=== PATIENT | male | born 1960 | race Caucasian/White ===

== ENCOUNTER 2016-11-09 20:47 | Inpatient (IN) | payer OTHER ==
[2016-11-09 20:54] VITALS: BMI 27.6
[2016-11-09] MEDS ORDERED: ENALAPRIL MALEATE 10 MG TABLET (FP) PO ONE (21:50)
[2016-11-09] MEDS ORDERED: NITROGLYCERIN SUBLINGUAL 1/150 0.4 MG TAB SL ONE (21:51)
[2016-11-09] MEDS ORDERED: NITROGLYCERIN 2% OINTMENT - 1GM PACKET TD ONE (21:51)
[2016-11-09] MEDS ORDERED: ENALAPRIL MALEATE 5 MG TABLET (FP) ONE (21:54)
--- NOTE | 2016-11-09 22:33 | PDOC ---
History of Present Illness - General History Source: Patient - History of Present Illness Initial Comments: 11/09/16 22:42 The patient is a 56-year-old male accompanied by friend with a significant past medical history of hypertension (7 years), [place] (2009), and presents to the emergency department with high blood pressure, lightheadedness, dizziness, and weakness for 5 days. He reports he measured his blood pressure at home and it has been approximately 220/120 for the last few days. He started taking his s metoprolol (from [facility]), 50 mg, intermittently twice a day for 3 days when his high blood pressure exacerbation started. He states that he also had an unwitnessed fall at home 4 days ago due to his dizziness. He reports swelling in his left elbow. He reports experiencing numbness in his left shoulder 2 days ago, and he reports more weakness in the left side of his body. He reports difficulty walking and feels a heaviness in his legs. He denies head trauma, loss of consciousness, or syncope. His doctor is in [facility] and his last doctor s visit was 3 years ago. He is non-compliant with his medications. The patient speaks Faroese-Persian. The patient denies chest pain, shortness of breath, blurry vision, and headache. The patient denies fever, chills, nausea, vomit, diarrhea and constipation. The patient denies dysuria, frequency, urgency and hematuria. Allergies: NKDA Social History: No toxic habits reported PCP: in [facility] <Jana Hurtado - Last Filed: 11/09/16 22:41> <Steffany Duenas - Last Filed: 11/11/16 06:32> - General Chief Complaint: Blood Pressure Problem Stated Complaint: HIGH BP/LIGHTHEADED Time Seen by Provider: 11/09/16 21:18 Past History <Jana Hurtado - Last Filed: 11/09/16 22:41> - Past Medical History Cardiac Disorders: Yes (AL 1995, 2009) HTN: Yes - Psycho/Social/Smoking Cessation Hx Suicidal Ideation: No Smoking History: Never smoked <Steffany Duenas - Last Filed: 11/11/16 06:32> - Past Medical History Allergies/Adverse Reactions: Allergies Allergy/AdvReac Type Severity Reaction Status Date / Time No Known Allergies Allergy Verified 11/09/16 20:52 Home Medications: Ambulatory Orders Metoprolol Succinate [Toprol Xl] 50 mg PO DAILY 11/09/16 Review of Systems - Review of Systems Able to Perform ROS?: Yes Comments:: 11/09/16 22:42 CONSTITUTIONAL: Present: (+) generalized weakness Absent: fever, chills, diaphoresis, malaise, loss of appetite HEENT: Absent: rhinorrhea, nasal congestion, throat pain, throat swelling, difficulty swallowing, mouth swelling, ear pain, eye pain, visual changes CARDIOVASCULAR: Present: (+) lightheadedness, (+) high blood pressure Absent: chest pain, syncope, palpitations, irregular heart rate, peripheral edema RESPIRATORY: Absent: cough, shortness of breath, dyspnea with exertion, orthopnea, wheezing, stridor, hemoptysis GASTROINTESTINAL: Absent: abdominal pain, abdominal distension, nausea, vomiting, diarrhea, constipation, melena, hematochezia GENITOURINARY: Absent: dysuria, frequency, urgency, hesitancy, hematuria, flank pain, genital pain MUSCULOSKELETAL: Present: (+) left elbow swelling Absent: myalgia, arthralgia SKIN: Absent: rash, itching, pallor HEMATOLOGIC/IMMUNOLOGIC: Absent: easy bleeding, easy bruising, lymphadenopathy, frequent infections ENDOCRINE: Absent: unexplained weight gain, unexplained weight loss, heat intolerance, cold intolerance NEUROLOGIC: Present: (+) dizziness Absent: headache, focal weakness or paresthesias, unsteady gait, seizure, mental status changes, bladder or bowel incontinence PSYCHIATRIC: Absent: anxiety, depression, suicidal or homicidal ideation, hallucinations. <Jana Hurtado - Last Filed: 11/09/16 22:41> *Physical Exam - Vital Signs Last Vital Signs Temp Pulse Resp BP Pulse Ox 98 F 55 L 18 200/110 97 11/09/16 20:52 11/09/16 20:52 11/09/16 20:52 11/09/16 20:52 11/09/16 20:52 - Physical Exam Comments: 11/09/16 22:43 GENERAL: Well developed, well nourished. Awake and alert. No acute distress. HEENT: Normocephalic, atraumatic. PERRLA, EOMI. No conjunctival pallor. Sclera are non- icteric. Moist mucous membranes. Oropharynx is clear. NECK: Supple. Full ROM. No JVD. Carotid pulses 2+ and symmetric, without bruits. No thyromegaly. No lymphadenopathy. CARDIOVASCULAR: Regular rate and rhythm. No murmurs, rubs, or gallops. Distal pulses are 2+ and symmetric. PULMONARY: No evidence of respiratory distress. Lungs clear to auscultation bilaterally. No wheezing, rales or rhonchi. ABDOMINAL: Soft. Non-tender. Non-distended. No rebound or guarding. No organomegaly. Normoactive bowel sounds. MUSCULOSKELETAL (+) Bursitis of the left elbow. Normal range of motion at all joints. No CVA tenderness. EXTREMITIES: No cyanosis. No clubbing. No edema. No calf tenderness. SKIN: Warm and dry. Normal capillary refill. No rashes. No jaundice. NEUROLOGICAL: (+) Neurologically intact, finger to nose normal, Romberg sign normal. Alert, awake, appropriate. Cranial nerves 2-12 intact. No deficits to light touch and temperature in face, upper extremities and lower extremities. No motor deficits in the in face, upper extremities and lower extremities. Normoreflexic in the upper and lower extremities. Normal speech. Toes are down-going bilaterally. PSYCHIATRIC: Cooperative. Good eye contact. Appropriate mood and affect. <Jana uHrtado - Last Filed: 11/09/16 22:41> - Vital Signs Last Vital Signs Temp Pulse Resp BP Pulse Ox 98 F 55 L 18 200/110 97 11/09/16 20:52 11/09/16 20:52 11/09/16 20:52 11/09/16 20:52 11/09/16 20:52 <Steffany Duenas - Last Filed: 11/11/16 06:32> ED Treatment Course - Medications Given in the ED: ED Medications Discontinued Medications Generic Name Dose Route Start Last Admin Trade Name Freq PRN Reason Stop Dose Admin Enalapril Maleate 20 mg 11/09/16 21:50 11/09/16 21:54 Vasotec - PO 11/09/16 21:51 20 mg ONCE ONE Administration Nitroglycerin 0.8 mg 11/09/16 21:51 11/09/16 21:53 Nitrostat - SL 11/09/16 21:52 0.8 mg ONCE ONE Administration Nitroglycerin 1 inch 11/09/16 21:51 11/09/16 21:53 Nitro-Bid 2% Paste - TD 11/09/16 21:52 1 inch ONCE ONE Administration <BryantJana - Last Filed: 11/09/16 22:41> - LABORATORY CBC & Chemistry Diagram: 11/10/16 06:00 11/10/16 06:00 - RADIOLOGY Radiology Studies Ordered: Category Date Time Status HEAD CT WITHOUT CONTRAST [CT] Stat CT Scan 11/09/16 21:50 Ordered CHEST PA & LAT [RAD] Stat Radiology 11/09/16 21:49 Ordered - Medications Given in the ED: ED Medications Discontinued Medications Generic Name Dose Route Start Last Admin Trade Name Jarrodq PRN Reason Stop Dose Admin Enalapril Maleate 20 mg 11/09/16 21:50 11/09/16 21:54 Vasotec - PO 11/09/16 21:51 20 mg ONCE ONE Administration Nitroglycerin 0.8 mg 11/09/16 21:51 11/09/16 21:53 Nitrostat - SL 11/09/16 21:52 0.8 mg ONCE ONE Administration Nitroglycerin 1 inch 11/09/16 21:51 11/09/16 21:53 Nitro-Bid 2% Paste - TD 11/09/16 21:52 1 inch ONCE ONE Administration <Steffany Duenas - Last Filed: 11/11/16 06:32> Medical Decision Making - Medical Decision Making 11/11/16 06:26 Pt comes with complaint of dizziness and chest pain and SOB. He has HTN; he doesnt have a doctor in the [place] at this time. He went to a doctor in [facility] 3 years ago. He had seen a doctor in [place] several years ago. Pt states that he has been taking his 's meds for BP: metorpolol BID for the past 3 days, but that it is not helping his BP. His is away in the [facility]. Pt has EKG that is sinus bradycardia (likely due to his HTN as well as his overuse in the past 3 days of metoprolol PO) Here I immediately gave him SLNTHG and nitro paste. He was also given oral meds for BP: HCTZ and enalapril. He has troponin in his blood and he will be admitted for HTN emergency and cardiac workup. CXR is clear. <Steffany Duenas - Last Filed: 11/11/16 06:32> *DC/Admit/Observation/Transfer - Attestations Scribe Attestion: 11/09/16 22:43 Documentation prepared by Jana Hurtado, acting as medical language specialist for Steffany Duenas MD. <Jana Hurtado - Last Filed: 11/09/16 22:41> - Discharge Dispostion Admit: Yes <Steffany Duenas - Last Filed: 11/11/16 06:32> Diagnosis at time of Disposition: Hypertensive emergency, Dizziness - Discharge Dispostion Condition at time of disposition: Guarded
[2016-11-09 23:35] LABS: BASOPHIL 0.6 % (0-2.0); EOSINOPHIL 1.7 % (0-4.5); MCH 31.7 pg (25.7-33.7); MCHC 34.7 g/dl (32.0-35.9); MEAN CELL VOLUME 91.1 fl (80-96); MEAN PLT VOLUME 8.2 fl (7.5-11.1); NEUTROPHILS 53.3 % (42.8-82.8); PLATELET COUNT 238 K/MM3 (134-434); RDW 13.2 % (11.9-15.9)
[2016-11-09 23:49] LABS: INR 0.94 (0.82-1.09); PROTHROMBIN TIME (PATIENT) 10.3 SEC (9.98-11.88)
[2016-11-10] LABS: ALBUMIN 3.5 g/dl (3.4-5.0); ANION GAP 9 (8-16); BILIRUBIN,TOTAL 0.2 mg/dL (0.2-1.0); CO2 23 mmol/L (21-32); COCKROFT - GAULT 142.21; CREATININE 0.8 mg/dL (0.7-1.3); GLUCOSE,RANDOM 113 mg/dL (74-106); SGOT/AST 44 U/L (15-37); SGPT/ALT 53 U/L (12-78); TOT PROT 6.5 g/dl (6.4-8.2)
[2016-11-10 00:03] LABS: ALK PHOS 66 U/L (45-117); TROPONIN I 0.15 ng/ml (0.00-0.05)
[2016-11-10] MEDS ORDERED: ASPIRIN 81 MG CHEWABLE TABLETS PO ONE (00:22)
[2016-11-10] MEDS ORDERED: ASPIRIN 81 MG CHEWABLE TABLETS ONE (00:23)
[2016-11-10] MEDS ORDERED: ENALAPRIL MALEATE 10 MG TABLET (FP) PO ONE (00:26)
--- NOTE | 2016-11-10 00:31 | PN ---
<Maria Del CarmenTyroneZoraida - Last Filed: 11/10/16 00:30> Teaching Attending Note Name of Resident: Wiliam Barker <Marilia Dorsey - Last Filed: 11/10/16 04:26> Teaching Attending Note ATTENDING PHYSICIAN STATEMENT I saw and evaluated the patient. I reviewed the resident's note and discussed the case with the resident. I agree with the resident's findings and plan as documented. SUBJECTIVE: 56 yo M presents with hypertension, lightheadedness, dizziness, and weakness for 5 days. History provided by acting as rotary derrick operator as patient speaks Panamanian. Patient states he took 2 50 mg pills of metoprolol yesterday at separate times. Patient also notes he had an unwitnessed fall at his house earlier today and was found to have a broken elbow in the ED. Blood pressure taken upon evaluation at 3:30 AM was 180/106. Patient denies chest pain. Patient endorses headaches since taking medication in the ED. Patient denies nausea, vomiting, diarrhea and abdominal pain. Patient denies hematuria, dysuria and frequency. PMHx: hypertension (7 years), [place] (2009) Social Hx: Occasional social ETOH OBJECTIVE: Last Vital Signs Temp Pulse Resp BP Pulse Ox 97.3 F L 50 L 14 142/86 99 11/10/16 03:00 11/10/16 03:00 11/10/16 03:00 11/10/16 03:00 11/10/16 01:33 GENERAL: Diaphoretic. Awake, alert, and fully oriented, in no acute distress HEENT: Atraumatic. PERRLA, EOMI. Moist mucosa. No JVD LUNGS: No distress, speaks full sentences, clear to auscultation bilaterally HEART: Regular rate and rhythm, normal S1 and S2, no murmurs, rubs or gallops, peripheral pulses normal and equal bilaterally. ABDOMEN: Soft, nontender, normoactive bowel sounds. No guarding, no rebound. No masses EXTREMITIES: Normal inspection, Normal range of motion, no edema. No clubbing or Cyanosis. NEUROLOGICAL: Cranial nerves II through XII grossly intact. Normal speech, no focal sensorimotor deficits SKIN: Warm, Dry, normal turgor, no rashes or lesions noted. CBCD WBC 6.0 K/mm3 (4.0-10.0) 11/09/16 23:10 RBC 4.06 M/mm3 (4.00-5.60) 11/09/16 23:10 Hgb 12.8 GM/dL (11.7-16.9) 11/09/16 23:10 Hct 36.9 % (35.4-49) 11/09/16 23:10 MCV 91.1 fl (80-96) 11/09/16 23:10 MCHC 34.7 g/dl (32.0-35.9) 11/09/16 23:10 RDW 13.2 % (11.9-15.9) 11/09/16 23:10 Plt Count 238 K/MM3 (134-434) 11/09/16 23:10 MPV 8.2 fl (7.5-11.1) 11/09/16 23:10 CMP Sodium 140 mmol/L (136-145) 11/09/16 23:10 Potassium 3.8 mmol/L (3.5-5.1) 11/09/16 23:10 Chloride 108 mmol/L (98-107) H 11/09/16 23:10 Carbon Dioxide 23 mmol/L (21-32) 11/09/16 23:10 Anion Gap 9 (8-16) 11/09/16 23:10 BUN 18 mg/dL (7-18) 11/09/16 23:10 Creatinine 0.8 mg/dL (0.7-1.3) 11/09/16 23:10 Creat Clearance w eGFR > 60 (>60) 11/09/16 23:10 Calcium 8.0 mg/dL (8.5-10.1) L 11/09/16 23:10 Total Bilirubin 0.2 mg/dL (0.2-1.0) 11/09/16 23:10 AST 44 U/L (15-37) H 11/09/16 23:10 ALT 53 U/L (12-78) 11/09/16 23:10 Alkaline Phosphatase 66 U/L (45-117) 11/09/16 23:10 Total Protein 6.5 g/dl (6.4-8.2) 11/09/16 23:10 Albumin 3.5 g/dl (3.4-5.0) 11/09/16 23:10 ASSESSMENT AND PLAN: 1.) HTN -Nitro drip -Losartan -25 Hydralazine in AM -Repeat ECG -Repeat Troponins -Hemoglobin A1C -Echo in AM -If BP greater than 180/110, Labetalol PRN -Cardiology consult -Stress test outpatient -If troponin trends up, Lovenox and Plavix 2.) Hx of ND -Statin Documentation prepared by Marilia Dorsey acting as medical corps officer for Zoraida Joyce M.D.
--- NOTE | 2016-11-10 00:37 | HP ---
CHIEF COMPLAINT: Light-headed & Dizzy PCP: has not seen one in >3 years (old one was in [facility]) HISTORY OF PRESENT ILLNESS: Patient is a 56 year old male with PMH of HTN & CO (1995) who presents to ED with dizziness & elevated BP. History is taken from patient, alongside & friend, as he only speaks [place] Islander. Patient states that he has felt light-headed , weak & dizzy for about 1 week. He had his blood pressure taken by a friend 5 days ago, who noted it to be 220/120 consistently. He started taking his 's Toprol 50mg twice a day in an attempt to lower his BP, but has been unsuccessful. He states the light-headedness has been getting worse, and that he decided to come in today because his left arm started to feel numb and his legs felt "shaky and weak". Patient also states that during a particularly bad dizzy spell 2 days ago, he fell onto the ground and hit his elbow hard. He states the elbow has become more swollen & painful since then. Denies LOC or head trauma. Patient denies chest pain, palpitations, headache, visual changes. Denies fever , chills, dysuria, frequency, urgency, hematuria, nausea, vomit, diarrhea and constipation. ER course was notable for: (1) BP found to be 200/100. Nitro 0.8mg SL, Nitro paste 1inch TD, ASA 162mg PO, Enalapril 40mg PO given in ED (2) Head CT (-) for acute pathology (3) Left elbow XRay shows olecranon spur w/ avulsion fracture (olecranon bursitis) Recent Travel: NONE NOTED PAST MEDICAL HISTORY: ABOVE PAST SURGICAL HISTORY: NONE REPORTED Social History: Smoking:NONE REPORTED Alcohol:SOCIALLY (1-2 drinks) Drugs:NONE REPORTED Family History: Allergies No Known Allergies Allergy (Verified 11/09/16 20:52) HOME MEDICATIONS: Home Medications Medication Instructions Recorded Metoprolol Succinate [Toprol Xl] 50 mg PO DAILY 11/09/16 REVIEW OF SYSTEMS CONSTITUTIONAL: (+)generalized weakness, Absent: fever, chills, diaphoresis, malaise, loss of appetite, weight change HEENT: Absent: rhinorrhea, nasal congestion, throat pain, throat swelling, difficulty swallowing, mouth swelling, ear pain, eye pain, visual changes CARDIOVASCULAR: (+)lightheadedness, Absent: chest pain, syncope, palpitations, irregular heart rate, peripheral edema RESPIRATORY: Absent: cough, shortness of breath, dyspnea with exertion, orthopnea, wheezing, stridor, hemoptysis GASTROINTESTINAL: Absent: abdominal pain, abdominal distension, nausea, vomiting, diarrhea, constipation, melena, hematochezia GENITOURINARY: Absent: dysuria, frequency, urgency, hesitancy, hematuria, flank pain, genital pain MUSCULOSKELETAL: Absent: myalgia, arthralgia, joint swelling, back pain, neck pain SKIN: Absent: rash, itching, pallor HEMATOLOGIC/IMMUNOLOGIC: Absent: easy bleeding, easy bruising, lymphadenopathy, frequent infections ENDOCRINE: Absent: unexplained weight gain, unexplained weight loss, heat intolerance, cold intolerance NEUROLOGIC: (+)focal weakness or paresthesias, dizziness, unsteady gait Absent: headache, seizure, mental status changes, bladder or bowel incontinence PSYCHIATRIC: Absent: anxiety, depression, suicidal or homicidal ideation, hallucinations. PHYSICAL EXAMINATION Vital Signs - 24 hr 11/09/16 11/09/16 11/09/16 20:52 22:46 23:49 Temperature 98 F 97.7 F Pulse Rate 55 L Pulse Rate [ 59 L 46 L Apical] Respiratory 18 16 18 Rate Blood Pressure 200/110 Blood Pressure 182/90 146/106 [Left Arm] O2 Sat by Pulse 97 100 100 Oximetry (%) GENERAL: Awake, alert, and fully oriented, in no acute distress. HEENT: EOMI, PERRLA, Atraumatic, No lymphadenopathy, No JVD noted, moist membranes LUNGS: Breath sounds equal, clear to auscultation bilaterally. No wheezes, and no crackles. No accessory muscle use. HEART: Regular rate and rhythm, normal S1 and S2 without murmur, rub or gallop. ABDOMEN: Soft, nontender, not distended, normoactive bowel sounds, no guarding, no rebound, no masses. No hepatomegaly or splenomegaly. MUSCULOSKELETAL: Normal range of motion at all joints except LEFT ELBOW (mildly limited ROM due to pain). Mild swelling noted at left elbow UPPER EXTREMITIES: 2+ pulses, warm, well-perfused. No cyanosis. No clubbing. LOWER EXTREMITIES: 2+ pulses, warm, well-perfused. No calf tenderness. No peripheral edema. NEUROLOGICAL: Cranial nerves II-XII intact. Normal speech. Gait not observed. PSYCHIATRIC: Cooperative. Good eye contact. Appropriate mood and affect. SKIN: Warm, dry, normal turgor, no rashes or lesions noted, normal capillary refill. Laboratory Results - last 24 hr 11/09/16 11/09/16 11/09/16 23:10 23:10 23:10 WBC 6.0 RBC 4.06 Hgb 12.8 Hct 36.9 MCV 91.1 MCHC 34.7 RDW 13.2 Plt Count 238 MPV 8.2 Neutrophils % 53.3 Lymphocytes % 37.9 Monocytes % 6.5 Eosinophils % 1.7 Basophils % 0.6 INR 0.94 Sodium 140 Potassium 3.8 Chloride 108 H Carbon Dioxide 23 Anion Gap 9 BUN 18 Creatinine 0.8 Creat Clearance w eGFR > 60 Random Glucose 113 H Calcium 8.0 L Total Bilirubin 0.2 AST 44 H ALT 53 Alkaline Phosphatase 66 Creatine Kinase 57 Troponin I 0.15 H Total Protein 6.5 Albumin 3.5 ASSESSMENT/PLAN: 56 year old male with PMH of HTN & CO (1995) who presents to ED with dizziness & elevated BP. BP found to be 200/110 #Hypertensive Emergency -chronic medication noncompliance is likely etiology, but need to r/o other causes -started on Nitroglycerin drip, uptitrate to keep BP <180/110 -will start Losartan 50mg PO, Nifedipine XR 30mg PO in morning, Lipitor 40mg PO HS -telemetry admission for continuous cardiac monitoring -first troponin 0.12, continue to trend -cardiology consult in AM -ECHO ordered -sodium controlled diet -Urine Tox (-) #Left Olecranon avulsion fracture -outpatient ortho followup as patient is not in significant pain -pain management as needed Prophylaxis -SCD's -No PPI indicated Visit type - Emergency Visit Emergency Visit: Yes ED Registration Date: 11/10/16 Care time: The patient presented to the Emergency Department on the above date and was hospitalized for further evaluation of their emergent condition. - New Patient This patient is new to me today: Yes Date on this admission: 11/10/16 - Critical Care Critical Care patient: No
[2016-11-10] MEDS ORDERED: ACETAMINOPHEN 325 MG TABLET (FP) PO PRN (01:28)
[2016-11-10 01:36] LABS: URINE MARIJUANA THC NEGATIVE ng/ml (CUTOFF=50)
[2016-11-10] MEDS ORDERED: NITROGLYCERIN 25MG/D5W 250ML 250 ML IVPB SCH ×2 (03:45→03:53)
[2016-11-10] MEDS: NITROGLYCERIN 25MG/D5W 250ML 250 ML IVPB SCH ×2 (06:52→13:11)
[2016-11-10 08:08] LABS: MCH 31.6 pg (25.7-33.7); MCHC 34.2 g/dl (32.0-35.9); MEAN CELL VOLUME 92.4 fl (80-96); MEAN PLT VOLUME 8.4 fl (7.5-11.1); PLATELET COUNT 215 K/MM3 (134-434); RDW 13.1 % (11.9-15.9); WHITE BLOOD COUNT 5.5 K/mm3 (4.0-10.0)
[2016-11-10 08:57] LABS: CALCIUM 8.3 mg/dL (8.5-10.1); COCKROFT - GAULT 162.53; CREATININE 0.7 mg/dL (0.7-1.3); TROPONIN I 0.13 ng/ml (0.00-0.05)
[2016-11-10] MEDS: NIFEdipine E.R. 30 MG TABLET (FP) PO SCH (09:27)
[2016-11-10] MEDS: LOSARTAN POTASSIUM 50 MG TABLET (FP) PO SCH (09:27)
--- NOTE | 2016-11-10 09:52 | EKG ---
Test Reason : Blood Pressure : / mmHG Vent. Rate : 066 BPM Atrial Rate : 066 BPM P-R Int : 178 ms QRS Dur : 096 ms QT Int : 442 ms P-R-T Axes : 061 -04 027 degrees QTc Int : 463 ms SINUS RHYTHM WITH SINUS ARRHYTHMIA WITH OCCASIONAL PREMATURE VENTRICULAR COMPLEXES INFERIOR INFARCT (CITED ON OR BEFORE 09-NOV-2016) ABNORMAL ECG WHEN COMPARED WITH ECG OF 09-NOV-2016 21:42, PREMATURE VENTRICULAR COMPLEXES ARE NOW PRESENT Confirmed by WILFRED ELLIOTT MD ([id number]) on 11/10/2016 9:52:03 AM Referred By: Nila HALL Confirmed By:WILFRED ELLIOTT MD
--- NOTE | 2016-11-10 09:58 | EKG ---
Test Reason : Blood Pressure : / mmHG Vent. Rate : 059 BPM Atrial Rate : 059 BPM P-R Int : 184 ms QRS Dur : 096 ms QT Int : 432 ms P-R-T Axes : 058 -07 025 degrees QTc Int : 427 ms SINUS BRADYCARDIA POSSIBLE LEFT ATRIAL ENLARGEMENT INFERIOR INFARCT , AGE UNDETERMINED CANNOT RULE OUT ANTERIOR INFARCT , AGE UNDETERMINED ABNORMAL ECG NO PREVIOUS ECGS AVAILABLE Confirmed by WILFRED ELLIOTT MD ([id number]) on 11/10/2016 9:57:24 AM Referred By: Confirmed By:WILFRED ELLIOTT MD
--- NOTE | 2016-11-10 12:02 | HOSP ---
Subjective - Review of Symptoms Subjective: c/o BATRES since started on medication. tenderness L elbow denies CP, SOB,fever, chills, N/V/C/D Current Medications Generic Name Dose Route Start Last Admin Trade Name Betsey PRN Reason Stop Dose Admin Acetaminophen 650 mg 11/10/16 01:28 Tylenol - PO Q6H PRN FEVER OR PAIN Atorvastatin Calcium 40 mg 11/10/16 22:00 Lipitor - PO HS JOSE DE JESUS Nitroglycerin/Dextrose 250 mls @ 1.8 mls/hr 11/10/16 06:44 11/10/16 06:52 Nitroglycerin 25mg/D5w 250ml IVPB 4 mcg/min TITR JOSE DE JESUS Titration 3 MCG/MIN Losartan Potassium 50 mg 11/10/16 10:00 11/10/16 09:27 Cozaar - PO 50 mg DAILY JOSE DE JESUS Administration Nifedipine 30 mg 11/10/16 10:00 11/10/16 09:27 Procardia Xl - PO 30 mg DAILY JOSE DE JESUS Administration Last Vital Signs Temp Pulse Resp BP Pulse Ox 98.2 F 68 14 172/96 96 11/10/16 08:00 11/10/16 11:03 11/10/16 11:03 11/10/16 11:03 11/10/16 09:00 General NAD CV S1 S2 RRR no murmur/rub/gallop Lungs CTA B/L no wheezing/rales/rhonchi Abdomen soft NT/ND Extremities L olnecron tenderness and swelling no erythema, no drainage CBCD WBC 5.5 K/mm3 (4.0-10.0) 11/10/16 06:00 RBC 4.07 M/mm3 (4.00-5.60) 11/10/16 06:00 Hgb 12.9 GM/dL (11.7-16.9) 11/10/16 06:00 Hct 37.6 % (35.4-49) 11/10/16 06:00 MCV 92.4 fl (80-96) 11/10/16 06:00 MCHC 34.2 g/dl (32.0-35.9) 11/10/16 06:00 RDW 13.1 % (11.9-15.9) 11/10/16 06:00 Plt Count 215 K/MM3 (134-434) 11/10/16 06:00 MPV 8.4 fl (7.5-11.1) 11/10/16 06:00 CMP Sodium 143 mmol/L (136-145) 11/10/16 06:00 Potassium 4.2 mmol/L (3.5-5.1) 11/10/16 06:00 Chloride 108 mmol/L (98-107) H 11/10/16 06:00 Carbon Dioxide 27 mmol/L (21-32) 11/10/16 06:00 Anion Gap 8 (8-16) 11/10/16 06:00 BUN 14 mg/dL (7-18) D 11/10/16 06:00 Creatinine 0.7 mg/dL (0.7-1.3) 11/10/16 06:00 Creat Clearance w eGFR > 60 (>60) 11/09/16 23:10 Calcium 8.3 mg/dL (8.5-10.1) L 11/10/16 06:00 Total Bilirubin 0.2 mg/dL (0.2-1.0) 11/09/16 23:10 AST 44 U/L (15-37) H 11/09/16 23:10 ALT 53 U/L (12-78) 11/09/16 23:10 Alkaline Phosphatase 66 U/L (45-117) 11/09/16 23:10 Total Protein 6.5 g/dl (6.4-8.2) 11/09/16 23:10 Albumin 3.5 g/dl (3.4-5.0) 11/09/16 23:10 A/p 56yo M with PMH HTN and [place] in the past presents to the ER and was admitted for further evaluation of their emergent condition 1. HTN emergency- improved still on NTG ggt. started on po this morning losartan and nifedipine. goal SBP 170 in the first 24H then will gradually increase medications. titrate NTG ggt. echo pending. cardiac enzymes 0.15 on admission and now trending down. 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 Olencrenon avulsion with bursitis- does not appear to have any overlying cellulitis. due to trauma. ortho consult. 3. DVT ppx- EAM Physical Examination Vital Signs: Vital Signs Temperature 98.2 F 11/10/16 08:00 Pulse Rate 68 11/10/16 11:03 Respiratory Rate 14 11/10/16 11:03 Blood Pressure 172/96 11/10/16 11:03 O2 Sat by Pulse Oximetry (%) 96 11/10/16 09:00 Labs: CBC, BMP 11/10/16 06:00 11/10/16 06:00
[2016-11-10] MEDS ORDERED: IBUPROFEN 400 MG TABLET (FP) PO PRN (12:40)
[2016-11-10 13:56] LABS: TROPONIN I 0.13 ng/ml (0.00-0.05)
--- NOTE | 2016-11-10 16:45 | CON.ORTH ---
Consult Reason for Consultation:: left elbow pain, swelling - Smoking History Smoking history: Unknown if ever smoked Home Medications - Allergies Allergies/Adverse Reactions: Allergies Allergy/AdvReac Type Severity Reaction Status Date / Time No Known Allergies Allergy Verified 11/09/16 20:52 - Home Medications Home Medications: Ambulatory Orders Metoprolol Succinate [Toprol Xl] 50 mg PO DAILY 11/09/16 Physical Exam for Ortho Vital Signs: Vital Signs Temperature 99.1 F 11/10/16 14:01 Pulse Rate 68 11/10/16 15:30 Respiratory Rate 14 11/10/16 15:30 Blood Pressure 152/92 11/10/16 15:30 O2 Sat by Pulse Oximetry (%) 96 11/10/16 09:00 Labs: CBC, BMP 11/10/16 06:00 11/10/16 06:00 INR, PTT INR 0.94 (0.82-1.09) 11/09/16 23:10 - Upper Extremity Elbow: Yes: Left, Assymetrical, Other (+ olecranon bursitis, no erythema, triceps intact,full rom, strength 5/5, nvi) Imaging - Results X-ray: Report Reviewed, Image Reviewed (+ olecranon bursitis, chronic avulsion of olecranon osteophyte) Assessment/Plan 56yo M with PMH HTN and [place] in the past presents to the ER and was admitted for further evaluation of their emergent condition. also c/o pain in swelling in left elbow. Has been present for ~5months (since ) after a fall. He is able to use the arm without difficulty but it is swollen. a/p- left olecranon bursitis After consent given, under sterile technique the left olecranon bursa was aspirated. Only small amount was able to be aspirated given fact it has been 5 months. The elbow was wrapped in a dry dressing that can be removed tomorrow If swelling persists and pt is unhappy can excise bursa operatively However since he has full ROM, full strength, and little pain would recommend to treat conservatively may d/c from ortho pov f/u as outpt in 10-14 days d/w Dr. Johnson
[2016-11-10] MEDS: ATORVASTATIN CA 40 MG TABLET (FP) PO SCH (21:23)
[2016-11-11] MEDS: LOSARTAN POTASSIUM 50 MG TABLET (FP) PO SCH (10:03)
[2016-11-11] MEDS: NIFEdipine E.R. 30 MG TABLET (FP) PO SCH (10:03)
--- NOTE | 2016-11-11 10:50 | PN ---
Teaching Attending Note Name of Resident: David Nolasco ATTENDING PHYSICIAN STATEMENT I saw and evaluated the patient. I reviewed the resident's note and discussed the case with the resident. I agree with the resident's findings and plan as documented. SUBJECTIVE:currently asymptomatic. denies CP, SOB,fever, chills, BATRES, N/V/C/D OBJECTIVE: Last Vital Signs Temp Pulse Resp BP Pulse Ox 98.1 F 54 L 16 149/97 98 11/11/16 05:00 11/11/16 05:00 11/11/16 05:00 11/11/16 05:00 11/10/16 20:26 General NAD CV S1 S2 RRR no murmur/rub/gallop Extremities LUE elbow wrapped with c/d/i 56yo M with PMH HTN and [place] in the past presents to the ER and was admitted for further evaluation of their emergent condition 1. HTN emergency-NTG ggt d/c in the evening. BP improved. will titrate up medications to optimize BP. echo pending. on CCB/ARB/statin 2. Olencrenon avulsion with bursitis- s/p aspiration by ortho. f/u with them as outpatient for possible elective excision. pain control 3. DVT ppx- EAM 4. d/c home tomorrow pending results of echo
--- NOTE | 2016-11-11 15:36 | PN ---
Physical Exam: SUBJECTIVE: Patient seen and examined Pt is feeling no s/s of distress no fever or chills no chest pain, palpitation, sob no event on the monitor overnight OBJECTIVE: Vital Signs Period Temp Pulse Resp BP Sys/Sung Pulse Ox Last 24 Hr 97.4 F-98.7 F 51-69 14-18 120-159/79-97 98-98 GENERAL: The patient is awake, alert, and fully oriented, in no acute distress. HEAD: Normal with no signs of trauma. NECK: Trachea midline, full range of motion, supple. LUNGS: Breath sounds equal, clear to auscultation bilaterally, no wheezes, no crackles, no accessory muscle use. HEART: Regular rate and rhythm, S1, S2 with murmur, rub or gallop. ABDOMEN: Soft, nontender, nondistended, normoactive bowel sounds, no guarding, no rebound, no hepatosplenomegaly, no masses. EXTREMITIES: 2+ pulses, warm, well-perfused, no edema. left elbow with normal rom active and passive with no pain or tenderness, strength 5/5 with b/l upper extremities. NEUROLOGICAL: Normal speech, gait not observed. PSYCH: Normal mood, normal affect. SKIN: Warm, dry, normal turgor, no rashes or lesions noted Active Medications Generic Name Dose Route Start Last Admin Trade Name Freq PRN Reason Stop Dose Admin Acetaminophen 650 mg 11/10/16 01:28 Tylenol - PO Q6H PRN FEVER OR PAIN Atorvastatin Calcium 40 mg 11/10/16 22:00 11/10/16 21:23 Lipitor - PO 40 mg HS JOSE DE JESUS Administration Ibuprofen 400 mg 11/10/16 12:40 Motrin - PO Q4H PRN PAIN Losartan Potassium 50 mg 11/10/16 10:00 11/11/16 10:03 Cozaar - PO 50 mg DAILY JOSE DE JESUS Administration Nifedipine 30 mg 11/10/16 10:00 11/11/16 10:03 Procardia Xl - PO 30 mg DAILY JOSE DE JESUS Administration CBC, BMP 11/10/16 06:00 11/10/16 06:00 ASSESSMENT/PLAN: 56 year old male with pmh of HTN, [place] (1995) presented to ED with complaint dizziness, lightheadedness, headache, pt was found to have BP 200/110 was treated with Hypertensive emergency with Nitroglycerin drip. Hypertensive meergency troponins 0.15, 0.13, 0.13 Now on Po antihypertensives, BP in 130's to 150's over last 24 hours Continue Losatan 50mg Po Continue Nifedipine 30 po daily BP goal less 140/90 on Lipitor 40qhs Echo in am Continue tele monitoring Left Olecranon bursistis Bursa brained by ortho No pain, no tenderness in elbow joint normal range of motion Pt seen by ortho, Ok to discharge Pt from their point of view and follow up as outpatient with Dr Zuluaga in 10-14 days FEN Fluid: none Electrolytes: no abnormalities Nutrition: Low Na diet DVT prophylaxis: SCD Disposition: keep In telemetry pending Echo Visit type - Emergency Visit Emergency Visit: Yes ED Registration Date: 11/10/16 Care time: The patient presented to the Emergency Department on the above date and was hospitalized for further evaluation of their emergent condition. - New Patient This patient is new to me today: Yes Date on this admission: 11/11/16 - Critical Care Critical Care patient: No - Discharge Referral Referred to [facility] Med P.C.: No
[2016-11-11] MEDS: ATORVASTATIN CA 40 MG TABLET (FP) PO SCH (21:46)
[2016-11-11] MEDS ORDERED: diphenhydrAMINE HCL 25 MG CAPSULE (FP) PO ONE (22:00)
--- NOTE | 2016-11-12 09:13 | PN ---
Progress Note (short form) - Note Progress Note: Ortho Pt seen and examined s/p left olecranon bursa aspiration, doing better decr swelling, non-tender, full rom, nvi a/p Much improved nothing further to do f/u as outpt as needed d/w Dr. Johnson
[2016-11-12] MEDS: NIFEdipine E.R. 30 MG TABLET (FP) PO SCH (09:43)
[2016-11-12] MEDS: LOSARTAN POTASSIUM 50 MG TABLET (FP) PO SCH (09:43)
--- NOTE | 2016-11-12 11:52 | PN ---
Physical Exam: SUBJECTIVE: Patient seen and examined Pt is awake, alert and fully oriented Pt is complaining about left arm swelling NO pain, tenderness No weakness, no numbness or tingling no chest pain, palpitation OBJECTIVE: Vital Signs Period Temp Pulse Resp BP Sys/Sung Pulse Ox Last 24 Hr 98.4 F-98.7 F 56-66 18-20 135-139/84-91 97 GENERAL: The patient is awake, alert, and fully oriented, in no acute distress. HEAD: Normal with no signs of trauma. NECK: Trachea midline, full range of motion, supple. LUNGS: Breath sounds equal, clear to auscultation bilaterally, no wheezes, no crackles, no accessory muscle use. HEART: Regular rate and rhythm, S1, S2 with murmur, rub or gallop. ABDOMEN: Soft, nontender, nondistended, normoactive bowel sounds, no guarding, no rebound, no hepatosplenomegaly, no masses. EXTREMITIES: 2+ pulses, warm, well-perfused. left forearm swelling which improved after removing elbow bandage. left elbow with normal rom active and passive with no pain or tenderness, strength 5/5 with b/l upper extremities. NEUROLOGICAL: Normal speech, gait not observed. PSYCH: Normal mood, normal affect. SKIN: Warm, dry, normal turgor, no rashes or lesions noted Active Medications Generic Name Dose Route Start Last Admin Trade Name Freq PRN Reason Stop Dose Admin Acetaminophen 650 mg 11/10/16 01:28 Tylenol - PO Q6H PRN FEVER OR PAIN Atorvastatin Calcium 40 mg 11/10/16 22:00 11/11/16 21:46 Lipitor - PO 40 mg HS JOSE DE JESUS Administration Ibuprofen 400 mg 11/10/16 12:40 Motrin - PO Q4H PRN PAIN Losartan Potassium 50 mg 11/10/16 10:00 11/12/16 09:43 Cozaar - PO 50 mg DAILY JOSE DE JESUS Administration Nifedipine 30 mg 11/10/16 10:00 11/12/16 09:43 Procardia Xl - PO 30 mg DAILY JOSE DE JESUS Administration CBC, BMP 11/10/16 06:00 11/10/16 06:00 Laboratory Tests 11/09/16 11/10/16 11/10/16 23:10 06:00 12:47 Troponin I 0.15 H 0.13 H 0.13 H Total LDL Cholesterol 90 HDL Cholesterol 40 ASSESSMENT/PLAN: 56 year old male with pmh of HTN, [place] (1995) presented to ED with complaint dizziness, lightheadedness, headache, pt was found to have BP 200/110 was treated with Hypertensive emergency with Nitroglycerin drip. Hypertensive emergency troponins 0.15, 0.13, 0.13 Now on Po antihypertensives, BP at BP goal less 140/90. BP in 130's over last 24 hours Continue Losatan 50mg Po Continue Nifedipine 30 po daily on Lipitor 40qhs Echo today Continue tele monitoring Left Olecranon bursistis Bursa brained by ortho No pain, no tenderness in elbow joint normal range of motion Pt had swelling in left forearm which is resolved by removing left eelbow wrap OK to DC from ortho point of view, follow up prn FEN Fluid: none Electrolytes: no abnormalities Nutrition: Low Na diet DVT prophylaxis: SCD Disposition: keep In telemetry pending Echo Visit type - Emergency Visit Emergency Visit: Yes ED Registration Date: 11/10/16 Care time: The patient presented to the Emergency Department on the above date and was hospitalized for further evaluation of their emergent condition. - New Patient This patient is new to me today: Yes - Critical Care Critical Care patient: No - Discharge Referral Referred to [facility] Med P.C.: No
--- NOTE | 2016-11-12 11:55 | PN ---
Teaching Attending Note Name of Resident: David Nolasco ATTENDING PHYSICIAN STATEMENT I saw and evaluated the patient. I reviewed the resident's note and discussed the case with the resident. I agree with the resident's findings and plan as documented. SUBJECTIVE:mild BATRES this AM when he woke up which has now resolved. denies CP, SOB,fever, chills, N/V/C/D OBJECTIVE: Last Vital Signs Temp Pulse Resp BP Pulse Ox 98.4 F 66 20 135/88 97 11/12/16 01:44 11/12/16 05:00 11/12/16 05:00 11/12/16 05:00 11/11/16 21:00 General NAD CV S1 S2 RRR no murmur/rub/gallop Extremities LUE elbow mild tenderness on palpation. full active ROM 56yo M with PMH HTN and [place] in the past presents to the ER and was admitted for further evaluation of their emergent condition 1. HTN emergency-BP controlled on oral medications. asymptomatic. check echo for wall motion abnormalities. will need cardio workup as outpatient. on CCB/ARB /statin 2. Olencrenon avulsion with bursitis- s/p aspiration by ortho. f/u with them as outpatient for possible elective excision. pain control 3. DVT ppx- EAM 4. d/c home pending echo today
[2016-11-12 15:44] VITALS: BP 145/92; PULSE 59; TEMP 98.5
--- NOTE | 2016-11-13 07:22 | PN ---
Physical Exam: SUBJECTIVE: Patient seen and examined OBJECTIVE: Vital Signs Period Temp Pulse Resp BP Sys/Sung Pulse Ox Last 24 Hr 98.3 F-98.5 F 59-65 20-20 140-145/83-92 97 ASSESSMENT/PLAN: 56 year old male with pmh of HTN, [place] (1995) presented to ED with complaint dizziness, lightheadedness, headache, pt was found to have BP 200/110 was treated with Hypertensive emergency with Nitroglycerin drip. Troponins was stable at 0.15, 0.13, 0.13. Pt was placed on telemetry with no event on monitro throughout the admission. Pt was switched to Po antihypertensives, was placed on Losatan 50mg Po and Nifedipine 30 po daily. Pt was at goal with BP less 140/ 90, BP in 130's over last 24 hours prior to discharge. Echo was done on with result still pending. Pt is to follow up with wreath and garland maker and PCP upon discharge. Pt had a left elbow fracture with Left Olecranon bursitis. Bursa was drained by ortho, Dr Diaz. No pain, no tenderness in elbow joint normal range of motion. follow up Orthopedic prn with Dr Johnson.
--- NOTE | 2016-11-14 16:42 | DS ---
Physical Exam: SUBJECTIVE: Patient seen and examined OBJECTIVE: PHYSICAL EXAM LABS CBC, BMP 11/10/16 06:00 11/10/16 06:00 HOSPITAL COURSE: Date of Admission:11/10/16 56 year old male with pmh of HTN, [place] (1995) presented to ED with complaint dizziness, lightheadedness, headache, pt was found to have BP 200/110 was treated with Hypertensive emergency with Nitroglycerin drip. Troponins was stable at 0.15, 0.13, 0.13. Pt was placed on telemetry with no event on monitro throughout the admission. Pt was switched to Po antihypertensives, was placed on Losatan 50mg Po and Nifedipine 30 po daily. Pt was at goal with BP less 140/ 90, BP in 130's over last 24 hours prior to discharge. Echo was done on with result still pending. Pt is to follow up with direct care supervisor and PCP upon discharge. Pt had a left elbow fracture with Left Olecranon bursitis. Bursa was drained by ortho, Dr Diaz. No pain, no tenderness in elbow joint normal range of motion. follow up Orthopedic prn with Dr Johnson. Date of Discharge: 11/12/16 Minutes to complete discharge: 40 Discharge Summary Reason For Visit: DIZZINESS, HYPERTENSIVE - Instructions Diet, Activity, Other Instructions: Mr Alfaro, you were admitted for uncontrolled blood pressure. It is important that you take your medications every day. You will be called tomorrow regarding the results of your echocardiogram. pending the results you may need a stress test. Follow up with cardiology this week. information on one has been provided You need to follow up with a primary care doctor, information on one has been provided If your elbow continues to cause pain follow up with orthopedic surgeon for surgery Follow a low salt diet If your symptoms worsen or you develop chest pain return to the ER. Referrals: Vickie Wilkinson MD [Staff Physician] - 1 Week (primary care) Williams Victoria MD [Staff Physician] - 1 Week (cardiology) Disposition: HOME - Home Medications Comprehensive Discharge Medication List: Ambulatory Orders Atorvastatin Ca [Lipitor] 40 mg PO HS #30 tablet 11/12/16 Losartan Potassium [Cozaar -] 50 mg PO DAILY #30 tablet 11/12/16 Nifedipine ER [Procardia XL -] 30 mg PO DAILY #30 tablet 11/12/16 This patient is new to me today: Yes Emergency Visit: Yes ED Registration Date: 11/10/16 Care time: The patient presented to the Emergency Department on the above date and was hospitalized for further evaluation of their emergent condition. Critical Care patient: No - Discharge Referral Referred to [facility] Med P.C.: No
--- NOTE | 2016-11-16 14:14 | HOSP ---
Physical Examination Vital Signs: Vital Signs Temperature 98.5 F 11/12/16 15:43 Pulse Rate 59 L 11/12/16 15:43 Respiratory Rate 20 11/12/16 15:43 Blood Pressure 145/92 11/12/16 15:43 O2 Sat by Pulse Oximetry (%) 97 11/12/16 09:00 Labs: CBC, BMP 11/10/16 06:00 11/10/16 06:00 Hospitalist Encounter Assessment: Call Placed to Randolph Morel at [phone] regarding the result of his echocardiogram done at [facility]. No one answered. Message left in voicemail to call back. Will attempt to call the patient again in 2 hours. Visit type - Emergency Visit Emergency Visit: No - New Patient This patient is new to me today: Yes Date on this admission: 11/16/16 - Critical Care Critical Care patient: No
== END 2016-11-12 20:18 | disposition home or self-care (01) | DRG 199 ==
LOC: JER 20:47 → JERBED 11-10 01:10 → UNDOADMIN 11-10 01:15 → J4W 11-10 03:38
PROVIDERS: ADMIT Internal Medicine; ATTEND Internal Medicine
PROC: 0R9M3ZZ Drainage of Left Elbow Joint, Percutaneous Approach (ICD-10-PCS; principal; 2016-11-10)
DX: I16.1 Hypertensive emergency (principal); R42 Dizziness and giddiness; I25.2 Old myocardial infarction; Z91.14 Patient's other noncompliance with medication regimen; S52.022A Displaced fracture of olecranon process without intraarticular extension of left ulna, initial encounter for closed fracture; W19.XXXA Unspecified fall, initial encounter; Y92.9 Unspecified place or not applicable; M71.522 Other bursitis, not elsewhere classified, left elbow
CPT/HCPCS: 36415; 70450-TC; 71020-TC; 73070-TC-LT; 80048; 80053; 80061; 80307; 82550; 83036; 83721; 84443; 84484; 85025; 85027; 85610; 93005; 93010; 93306-TC; 99283-25